=== PATIENT | male | born 1980 | race African-American/Black ===

== ENCOUNTER 2024-08-29 23:47 | Emergency (ER) | payer OTHER ==
[~2024-08-29] VITALS: Ht 188 cm; Wt 90.3 kg
[2024-08-30 00:21] VITALS: BP 112/55; TEMP 98.6; O2SAT 100
== END 2024-08-30 00:39 | disposition home or self-care (01) ==
LOC: ER 08-30 00:08
DX: M79.18 Myalgia, other site (principal); Z60.2 Problems related to living alone